=== PATIENT | female | born 1990 | race Caucasian/White ===

== ENCOUNTER 2017-11-18 14:05 | Outpatient (CLI) | payer SELFPAY ==
[2017-11-18 14:35] VITALS: BMI 36.1
--- NOTE | 2017-11-18 15:26 | OB.TRI.NOTE ---
History of Present Illness Date of Service: 11/18/17 Was patient seen by the physician?: No Reason For Visit: RULE OUT LABOR Date of Service: 11/18/17 Final GURJIT: 11/16/17 Gestational age: 40 Weeks and 2 Days Home Medications Medication Instructions Recorded Vits [Prenatabs FA] 1 tablet PO DAILY 05/15/15 Naproxen [Naprosyn] 500 mg PO BID #10 tablet 07/02/17 Allergies amoxicillin trihydrate [From Augmentin] Allergy (Verified 05/15/15 15:38) Unknown PT STATES SHE WAS TOLD THIS FROM MOTHER A CHILD BUT UNSURE OF REACTION SO PREFERS NOT TO TAKE potassium clavulanate [From Augmentin] Allergy (Verified 05/15/15 15:38) Unknown Physical Exam General: Alert, Oriented x3, Cooperative, No apparent distress Cardiovascular: Regular rate, Regular Rhythm Lungs: Clear to auscultation, Normal air movement Abdomen: Soft, Non Tender, Non-Distended, Gravid, Appropriate for Gestational Age Extremities:: No edema Estimated gestational size: Appropriate for gestational size Presentation: Cephalic Cervix Dilation (cm): 2 Station: -2 Effacement (%): 50 NST - FHR Rate Baby A Baseline: 130s Variability:: Moderate Accelerations:: 15 x 15 Decelerations:: None NST Reactive:: Yes FHR Category:: Category I Uterine Activity:: rare Impression/Plan 40w2d ega not in active labor. Instructed to followup in office. Return with signs of SROM or increasing labor symptoms.
== END 2017-11-18 15:20 | disposition home or self-care (01) ==
LOC: WPOUT 14:15 → WP 14:16
PROVIDERS: Family Provider Family Medicine; PCP Family Medicine; Visit Provider Obstetrics & Gynecology
DX: O47.1 False labor at or after 37 completed weeks of gestation (principal); Z3A.40 40 weeks gestation of pregnancy
CPT/HCPCS: 59025; 59050; 99218; G0378

== ENCOUNTER 2017-11-20 21:01 | Inpatient (IN) | payer SELFPAY ==
[2017-11-20 19:32] VITALS: BMI 36.5
[2017-11-20 21:43] LABS: Hemoglobin 11.7 g/dl (12.0-15.0); Mean Corp Hgb Conc 32.5 g/gl (32-36); Mean Corpuscular Hgb 30.5 pg (27.0-32.0); Mean Platelet Vol. 10.4 fl (6.2-12.0); Platelet Count 235 K/mm3 (150-450); RBC Distribution Width CV 13.9 % (11.6-14.6); RBC Distribution Width SD 47.3 fl (35.1-43.9); Red Blood Count 3.83 M/mm3 (4.2-5.4); White Blood Count 12.3 K/mm3 (4.4-11.0)
[2017-11-20 21:54] LABS: Scan Indicated on CBC? Y/N NO
[2017-11-20] MEDS: Lactated Ringers 1,000 ML 50 ML IV ×2 (22:00→22:15)
--- NOTE | 2017-11-20 23:35 | PCM.PN.BLA ---
Progress Note LABOR PROGRESS NOTE Doing well, comfortable with epidural. AVSS GEN - NAD FHR 130, moderate variability, + accelerations, no decelerations TOCO - no contractions appreciated SVE 4.5/70/-3, moderate and midposition A/P: 27 yo @ 40 4/7wga in latent labor, Cat I FHR -Start pitocin for augmentation -Vancomyocin administered for GBS - and maternal statuses reassuring
[2017-11-20] MEDS: Oxytocin 30 units/NS 500 ml 30 UNITS/500 ML IV.SOLN IV (23:49)
[2017-11-21] MEDS: Oxytocin 30 units/NS 500 ml 30 UNITS/500 ML IV.SOLN 334 UNITS IV (02:44)
--- NOTE | 2017-11-21 03:02 | OP.PCM_ITS ---
Vaginal Delivery Maternal Presentation: Active Labor 40 5/7 wk UCs Amniotic Membrane Rupture Type: Spontaneous Amniotic Fluid Description: Moderate meconium Final GURJIT: 11/16/17 Gestational age: 40 Weeks and 5 Days [place] doctor who attended delivery (if requested by OB): Kaiser Gauthier Date of Procedure: 11/21/17 Pre-Operative Diagnosis: 40 5/7 wk, labor Post-Operative Diagnosis: same Surgery/ Procedure Performed: Spontaneous Vaginal Delivery Type of Anesthesia: Epidural Description of Procedure: of a ibanez viable female over intact perineum to laceration. Head delivered OA. Nuchal cord x one reduced. Shoulders delivered easily. Baby with initial cry then quiet so cord clamped x two and cut. Vigorous cry noted with transfer of baby to isolette (without stimulation other than movement) OP and nares then suctioned by Dr. Gauthier . Baby tended at isolette initially. Ap 8/9 PP exam: 2nd deg posterior vaginal , perineal laceration noted. Hemostatic, but repaired after delivery of placenta. 3-0 vicryl for repair. No other lacerations Placenta delivered by spont expulsion, expression. 3V cord, normal appearing, meconium stained. EBL 250 cc Pt and infant tolerated delivery well. to recovery , stable condition. Presentation: Vertex Placental Delivery Description: Spontaneous, Expressed Placenta Disposition: [facility] Cord Vessel Description: 3 Vessels Nuchal Cord Compression: Without compression Cord Entanglement: Around neck x 1, loose Drain: Beltre to straight drain Estimated Blood Loss: 250 A gender: Female (1 minute): 8 (5 minute): 9 Episiotomy Description: None Laceration: Midline, Perineal Extension/lac, Vaginal Extension/lac, 2nd degree Medications given after delivery: IV Pitocin Complications: None
[2017-11-21] MEDS: Oxytocin 30 units/NS 500 ml 30 UNITS/500 ML IV.SOLN 167 UNITS IV (03:15)
[2017-11-21 08:00] VITALS: BP 121/67; PULSE 74; RESP 18; TEMP 36.3; O2SAT 98
--- NOTE | 2017-11-21 08:10 | DCINST_ITS ---
Discharge Diet: No Restrictions Discharge Activity: May Shower, May Take a Tub Bath May resume sexual activity in: 4-6 weeks Additional Activity Instructions:: Nothing in the vagina for 4-6 weeks. You may return to work/school in 6 weeks. Additional Instructions: If you experience any of the following, contact your healthcare provider. * Bleeding that soaks a pad every hour for 2 hours * Fever 100.4 or higher * Unrelieved abdominal pain * Problems urinating (including inability to urinate or burning while urinating) . * Visual changes * Severe headache * Flu-like symptoms * Pain or redness in one of both of your breasts * Pain, warmth, tenderness or swelling in your legs, especially the calf area * Frequent nausea and vomiting * Symptoms of depression or anxiety If you experience any of the following, call 911 or go to the nearest Emergency Room. * Chest pain * Problems breathing * Seizure activity * Partial or complete paralysis of a body part, slurred speech, weakness or drooping of the face, or a sudden inability to walk or hold your balance Allergies/Adverse Reactions: Allergies amoxicillin trihydrate [From Augmentin] Allergy (Verified 05/15/15 15:38) Unknown PT STATES SHE WAS TOLD THIS FROM MOTHER A CHILD BUT UNSURE OF REACTION SO PREFERS NOT TO TAKE potassium clavulanate [From Augmentin] Allergy (Verified 05/15/15 15:38) Unknown Medications to take at Discharge Vits [Prenatabs FA] 1 tablet PO DAILY 05/15/15 Orders to be completed after discharge: Electric breast pump Time Frame: 1 Year, Location: None Selected Please Follow Up With: Chiquis Bingham MD - [phone] When: Call to make an appointment with your doctor in 6 weeks. Primary Care Physician: Seven Dickerson [Primary Care Provider] - Proposed Discharge Date: 11/23/17
[2017-11-21] MEDS: Prenatal Vits Tablet 1 TABLET PO (10:35)
[2017-11-21] MEDS: Ibuprofen 600 MG Tablet PO ×2 (12:42→20:18)
[2017-11-21 14:00] VITALS: BP 129/76; PULSE 78; RESP 16; TEMP 36.6; O2SAT 96
[2017-11-21 16:46] VITALS: BP 133/76; PULSE 82; RESP 18; TEMP 36.7; O2SAT 97
[2017-11-21 20:10] VITALS: BP 124/76; PULSE 89; RESP 17; TEMP 36.3; O2SAT 96
[2017-11-21] MEDS: Acetaminophen 500 MG Tablet 1000 MG PO (20:38)
[2017-11-21 23:30] VITALS: BP 130/72; PULSE 84; RESP 17; TEMP 36.6; O2SAT 96
[2017-11-22] MEDS: Ibuprofen 600 MG Tablet PO ×2 (01:53→12:40)
[2017-11-22 03:40] VITALS: BP 111/55; PULSE 74; RESP 16; TEMP 36.7; O2SAT 97
--- NOTE | 2017-11-22 06:57 | PCM.PN.OB ---
Subjective: PPD#1 States feeling really well, rested and would like to go home today. Spouse very helpful with infant care and Margaret was able to sleep. Flu restrictions on visitation in place and missing their other daughter. Minimal pain. Baby nursing well. - Physical Exam General: Alert, Oriented x3, Cooperative, No apparent distress HEENT: Atraumatic Neck: Supple Abdomen: Soft - Fundus firm NT at 2-3 cm inferior to umbilicus Psych/Mental Status: Normal Affect Vital Signs Temp Pulse Resp BP Pulse Ox 98.1 F 74 16 111/55 L 97 11/22/17 03:40 11/22/17 03:40 11/22/17 03:40 11/22/17 03:40 11/22/17 03:40 Oxygen Delivery Method Room Air Weight: 109 kg Body Mass Index (BMI) 36.5 Intake and Output for Last 24 Hours 11/20/17 11/21/17 11/22/17 23:59 23:59 23:59 Intake Total 3630 / 3630 Output Total 3100 / 3100 Balance 530 / 530 Assessment/Plan PPD#1 Stable pp. Dischg home RTO in 6 wk for pp check.
[2017-11-22 08:00] VITALS: BP 128/70; PULSE 79; RESP 15; TEMP 36.7; O2SAT 100
[2017-11-22] MEDS: Acetaminophen 500 MG Tablet 1000 MG PO (08:29)
[2017-11-22] MEDS: Prenatal Vits Tablet 1 TABLET PO (12:40)
[2017-11-22 14:00] VITALS: BP 130/76; PULSE 76; RESP 15; TEMP 36.6; O2SAT 100
== END 2017-11-22 15:10 | disposition home or self-care (01) | DRG 775 ==
LOC: WPOUT 21:05
PROVIDERS: Obstetrics & Gynecology; Admitting Provider Obstetrics & Gynecology; Family Provider Family Medicine; PCP Family Medicine; Visit Provider Obstetrics & Gynecology
DX: O42.02 Full-term premature rupture of membranes, onset of labor within 24 hours of rupture (principal); O69.81X0 Labor and delivery complicated by cord around neck, without compression, not applicable or unspecified; O77.0 Labor and delivery complicated by meconium in amniotic fluid; O70.1 Second degree perineal laceration during delivery; O99.824 Streptococcus B carrier state complicating childbirth; Z37.0 Single live birth; Z3A.40 40 weeks gestation of pregnancy; Z87.891 Personal history of nicotine dependence
CPT/HCPCS: 59025; 59050; 85027; 86850; 86900; 99218; J7120; G0378

== ENCOUNTER 2017-11-25 10:30 | Outpatient (CLI) | payer SELFPAY | END 2017-11-25 11:35 | disposition home or self-care (01) | LOC: WPOUT 10:43 → WP 10:45 | PROVIDERS: Family Provider Family Medicine; PCP Family Medicine; Visit Provider Obstetrics & Gynecology | DX: Z39.1 Encounter for care and examination of lactating mother (principal) | CPT/HCPCS: 96152 ==

== ENCOUNTER → 2019-01-09 11:39 | Outpatient (CLI) | payer SELFPAY ==
[2019-01-10 15:39] LABS: HPV Reflexed? NOT INDICATED
== END ==
PROVIDERS: Visit Provider Obstetrics & Gynecology
DX: Z12.4 Encounter for screening for malignant neoplasm of cervix (principal)
CPT/HCPCS: 88175; G0145

== ENCOUNTER → 2022-02-24 | Outpatient (CLI) | payer SELFPAY ==
[2022-02-24 16:48] LABS: Absolute Lymphocyte Count 2.48 X10^3/uL (0.83-4.51); Absolute Neutrophil Count 5.5 X10^3/uL (2.0-7.7); Basophil# 0.03 X10^3/uL; Basophil% 0.4 % (0-1); Eosinophil# 0.06 X10^3/uL; Eosinophils% 0.7 % (0-5); Hematocrit 37.9 % (37-47); Hemoglobin 12.6 g/dL (12.0-15.0); Lymphocyte # 2.48 X10^3/ul (0.83-4.51); Lymphocyte % 29.2 % (19-41); Mean Corp Hgb Conc 33.2 g/dL (32-36); Mean Corpuscular Hgb 32.1 pg (27.0-32.0); Mean Corpuscular Volume 96.4 fL (81-99); Mean Platelet Vol. 10.5 fl (6.2-12.0); Monocyte# 0.41 X10^3/uL; Monocyte% 4.8 % (0-10); NRBC Flagged by Analyzer 0 % (0-5); Neutrophil # 5.48 X10^3/uL (2.7-7.7); Neutrophil % 64.5 % (47-70); Platelet Count 285 K/mm3 (150-450); RBC Distribution Width CV 12.5 % (11.6-14.6); RBC Distribution Width SD 44.6 fl (35.1-43.9); Red Blood Count 3.93 M/mm3 (4.2-5.4); White Blood Count 8.5 K/mm3 (4.4-11.0)
[2022-02-24 18:15] LABS: HIV - WCH Non-Reactive (Nonreactive); Hepatitis B Surface Antigen Non-Reactive (Nonreactive); Hepatitis C Antibody Non-Reactive (Nonreactive); Rubella IgG Reactive (Nonreactive); Syphilis Antibodies Non-reactive
[2022-03-02 08:28] LABS: HPV APTIMA, High Risk Negative (Negative)
[2022-03-02 22:13] LABS: Chlamydia By Nucleic Acid AMP Negative; Gonococcus By Nucleic Acid AMP Negative
== END | disposition home or self-care (01) ==
PROVIDERS: Visit Provider Obstetrics & Gynecology
DX: Z34.81 Encounter for supervision of other normal pregnancy, first trimester (principal); Z12.4 Encounter for screening for malignant neoplasm of cervix; Z11.3 Encounter for screening for infections with a predominantly sexual mode of transmission
CPT/HCPCS: 36415; 85025; 86703; 86762; 86780; 86803; 87086; 87088; 87340; 87491; 87591; 87624; 88175; G0145

== ENCOUNTER → 2022-06-24 | Outpatient (CLI) | payer SELFPAY ==
[2022-06-24 11:42] LABS: Absolute Lymphocyte Count 1.96 X10^3/uL (0.83-4.51); Absolute Neutrophil Count 6.3 X10^3/uL (2.0-7.7); Basophil# 0.05 X10^3/uL; Basophil% 0.6 % (0-1); Eosinophils% 1.1 % (0-5); Hematocrit 37.2 % (37-47); Hemoglobin 12.1 g/dL (12.0-15.0); Lymphocyte # 1.96 X10^3/ul (0.83-4.51); Lymphocyte % 21.8 % (19-41); Mean Corp Hgb Conc 32.5 g/dL (32-36); Mean Corpuscular Volume 98.4 fL (81-99); Mean Platelet Vol. 10.2 fl (6.2-12.0); Monocyte# 0.45 X10^3/uL; NRBC Flagged by Analyzer 0 % (0-5); Neutrophil # 6.27 X10^3/uL (2.7-7.7); Neutrophil % 69.8 % (47-70); Platelet Count 251 K/mm3 (150-450); RBC Distribution Width CV 13.4 % (11.6-14.6); RBC Distribution Width SD 48.1 fl (35.1-43.9); Red Blood Count 3.78 M/mm3 (4.2-5.4)
[2022-06-24 11:47] LABS: Glucose Challenge Gest 1H 50g 98 mg/dL (70-140)
== END | disposition home or self-care (01) ==
PROVIDERS: Visit Provider Obstetrics & Gynecology
DX: Z34.82 Encounter for supervision of other normal pregnancy, second trimester (principal)
CPT/HCPCS: 36415; 82950; 85025

== ENCOUNTER → 2022-09-22 | Outpatient (CLI) | payer SELFPAY | END | disposition home or self-care (01) | PROVIDERS: Visit Provider Obstetrics & Gynecology | DX: Z34.83 Encounter for supervision of other normal pregnancy, third trimester (principal) | CPT/HCPCS: 87077; 87081; 87186 ==

== ENCOUNTER 2022-10-01 22:35 | Outpatient (CLI) | payer SELFPAY ==
[2022-10-01 22:41] VITALS: BMI 38.8
[2022-10-01 22:49] VITALS: BP 135/83; PULSE 94; PULSE 98; TEMP 36.6; O2SAT 92; O2SAT 97
[2022-10-01 23:27] VITALS: BP 125/79; PULSE 84
--- NOTE | 2022-10-02 09:06 | OB.TRI.NOTE ---
HPI - General General Date of Service: 10/01/22 HPI Narrative LEONARDO GONSALEZ, is a 32 F who presents with contractions PFSH PFSH Home Medications vits,calcium no.78-iron fumarate-folic acid 29 mg-1 mg tablet (Prenatabs FA) 1 tab PO DAILY 05/15/15 [History Last Taken 10/01/22] Allergy/AdvReac Type Severity Reaction Status Date / Time amoxicillin trihydrate Allergy Unknown Verified 10/01/22 22:59 [From Augmentin] potassium clavulanate Allergy Unknown Verified 10/01/22 22:59 [From Augmentin] teatree oil AdvReac Rash Uncoded 10/01/22 22:59 Social History Smoking Status: Former smoker History Elective abortions Hx Para 1 Spontaneous abortions Hx # Term Pregnancies Ectopic pregnancies Hx # Pregnancies Multiple births # of living children NST FHR Rate Baby A Baseline: 120 Variability:: Moderate Accelerations:: 15 x 15 Decelerations:: None NST Reactive:: Yes Uterine Activity:: infrequent contractions Assessment & Plan (1) : PLAN: Patient arrives with contractions. Overall unchanged cervix from office examination per nursing. Patient offered repeat cervical exam by nursing and patient declined. Okay to discharge home given labor precautions
== END 2022-10-02 00:46 | disposition home or self-care (01) ==
LOC: WPOUT 22:40 → WP 22:41
PROVIDERS: Visit Provider Obstetrics & Gynecology
DX: O47.9 False labor, unspecified (principal); Z3A.00 Weeks of gestation of pregnancy not specified; Z87.891 Personal history of nicotine dependence
CPT/HCPCS: 59025; 59050; 99221; G0378

== ENCOUNTER 2022-10-05 04:10 | Inpatient (IN) | payer SELFPAY ==
[2022-10-05] VITALS (62 sets, daily range): BP systolic 97–162; BP diastolic 51–95; PULSE 74–143; TEMP 36.3–37.2; O2SAT 83–100; BMI 38.7
[2022-10-05 04:09] LABS: ROM Internal Control Test YES-OK TO RESULT pt. (Internal QC)
[2022-10-05 04:10] LABS: ROM Patient Test POSITIVE (Negative)
[2022-10-05] MEDS: LACTATED RINGERS 500 ML 999 ML IV ×2 (05:00→16:48)
[2022-10-05] MEDS: Cefazolin 2 GM in 0.9% Normal Saline 100 ML IV (05:14)
[2022-10-05 05:15] LABS: Absolute Lymphocyte Count 2.39 X10^3/uL (0.83-4.51); Absolute Neutrophil Count 7.9 X10^3/uL (2.0-7.7); Basophil# 0.07 X10^3/uL; Basophil% 0.6 % (0-1); Eosinophil# 0.11 X10^3/uL; Hematocrit 33.9 % (37-47); Hemoglobin 10.9 g/dL (12.0-15.0); Lymphocyte # 2.39 X10^3/ul (0.83-4.51); Lymphocyte % 21.2 % (19-41); Mean Corp Hgb Conc 32.2 g/dL (32-36); Mean Corpuscular Hgb 30.9 pg (27.0-32.0); Mean Platelet Vol. 10.2 fl (6.2-12.0); Monocyte# 0.68 X10^3/uL; NRBC Flagged by Analyzer 0 % (0-5); Neutrophil # 7.85 X10^3/uL (2.7-7.7); Neutrophil % 69.5 % (47-70); Platelet Count 230 K/mm3 (150-450); RBC Distribution Width CV 13.9 % (11.6-14.6); RBC Distribution Width SD 48.4 fl (35.1-43.9); Red Blood Count 3.53 M/mm3 (4.2-5.4); White Blood Count 11.3 K/mm3 (4.4-11.0)
[2022-10-05] MEDS: Lactated Ringers 1,000 ML 200 ML IV ×3 (05:35→15:52)
[2022-10-05] MEDS: Mag Hydrox/Al Hydrox/Simeth 30 ML UDC PO ×2 (05:35→14:11)
[2022-10-05] MEDS: fentaNYL-bupivacaine (epidural) 100 ML BAG EPIDURAL ×3 (06:43→15:04)
--- NOTE | 2022-10-05 07:36 | PCM.HP.BLA ---
History and Physical Date of Admission: 10/05/22 Chief complaint: Leakage of fluid History present illness: 32-year-old G3, P2 at 38 weeks and 6 days with GURJIT 10/13/2022 arrives with leakage of clear fluid. Denies headache, visual changes, chest pain, shortness of breath, nausea vomit, right upper quadrant pain. Patient states good movement. Obstetric history: G1: 39-week 7 pounds 10 ounces G2: 41-week 7 pounds 10 ounces G3: Current Past medical history: None Medications: vitamin Past surgical history: Cholecystectomy, tonsillectomy Allergies: Augmentin Social history: Former smoker, denies alcohol or drug use Family history: Denies history DVT or PE Review of systems: Besides above pertinent positive for review of systems was performed and found to be negative Physical exam: Vitals: Pulse 86 SPO2 100% on room air General: Normal-appearing no acute distress HEENT: Normocephalic/atraumatic no cervical adenopathy Cardiac/respiratory: No use accessory muscles, nonlabored breathing Abdomen: Soft, nontender, gravid Extremities: No peripheral edema normal peripheral pulses Psych: Normal affect normal demeanor nonpressured speech Labs: White blood cell count 11.3 hemoglobin 10.9 hematocrit 33.9% platelets 230. ROM positive. Blood type AB+ antibody negative Assessment plan: 32-year-old G3, P2 at 30 weeks and 6 days with SROM Admit labor and delivery CEFM GBS positive: Allergy to Augmentin childhood. We will treat with Ancef
[2022-10-05] MEDS: Oxytocin 15 Units/NS 250ml 15 UNITS/250 ML IV.SOLN 2 UNITS IV (11:46)
[2022-10-05] MEDS: Cefazolin 1 GM/50 ML BAG IV (13:02)
[2022-10-05] MEDS: Methylergonovine 0.2 MG/ML Ampul IM (17:32)
--- NOTE | 2022-10-05 17:51 | EX.PCM.OBRPT ---
Vaginal Delivery Findings Description of Procedure: Normal spontaneous vaginal delivery of a viable female infant in vertex HELDER. Head and shoulders delivered with ease. Cord clamped and cut. Baby handed off to patient. Placenta delivery via cord traction and fundal massage. IV oxytocin initiated in order to facilitate uterine contractions. IM Methergine given prophylactically for quick and second stage of labor. Second-degree midline perineal laceration noted and repaired in typical fashion. EBL 350 cc Apgars 9/10
[2022-10-05] MEDS: Oxytocin 15 Units/NS 250ml 15 UNITS/250 ML IV.SOLN 83 UNITS IV (18:04)
[2022-10-05] MEDS: Benzocaine/Lanolin/Aloe Vera 1 SPRAY EACH TOPICAL (20:10)
[2022-10-05] MEDS: Ibuprofen 600 MG Tablet PO (20:10)
[2022-10-05] MEDS: 0.9% Saline Lock 10 ML Syringe IV (21:17)
[2022-10-06 00:01] VITALS: BP 115/65; PULSE 75; RESP 14; TEMP 36.5
[2022-10-06 05:16] VITALS: BP 109/78; PULSE 71; RESP 16; TEMP 36.5
[2022-10-06] MEDS: Ibuprofen 600 MG Tablet PO ×2 (05:25→11:18)
--- NOTE | 2022-10-06 07:28 | PCM.PN.OB ---
Subjective Subjective day 1. Lochia minimal. No issues or concerns overnight. Objective Data Objective Data Vital Signs: Vital Signs Temp Pulse Resp BP Pulse Ox O2 Del Method 97.7 F L 71 16 109/78 97 Room Air 10/06/22 05:16 10/06/22 05:16 10/06/22 05:16 10/06/22 05:16 10/05/22 20:01 10/06/22 05:16 Oxygen Delivery Method Room Air Weight: 112.219 kg Body Mass Index (BMI) 38.7 Intake & Output: Intake and Output for Last 24 Hours 10/04/22 10/05/22 10/06/22 23:59 23:59 23:59 Intake Total 4007.06 / 4007.06 800 / 800 Output Total 3550 / 3550 800 / 800 Balance 457.06 / 457.06 0 / 0 Lab / Micro Data Attestation: I reviewed the patient's lab results. Result Diagrams: 10/05/22 05:00 Physical Exam Const alert, oriented x3 and no apparent distress HEENT normocephalic Head and Scalp: atraumatic Neck full ROM Resp normal respiratory effort Cardio regular rate GI normal to inspection, nondistended, normoactive bowel sounds GI Narrative: Uterus 2 cm below umbilicus Back/Spine normal ROM Extremity normal to inspection Extremity Narrative: Minimal pedal edema Neuro no focal motor deficits and no sensory deficits noted Psych mental status grossly normal and affect normal Assessment & Plan (1) Vaginal delivery: PLAN: day 1 status post . Stable. Desires home-going today.
--- NOTE | 2022-10-06 07:29 | DCINST_ITS ---
Discharge Instructions Diet Discharge Diet: No restrictions Activity Discharge Activity: Return to Normal Activity and May Shower May resume sexual activity in: 4-6 weeks Weight Bearing Status: Weight bearing as tolerated Lifting Restrictions: No greater than 25 pounds Dressing / Incision Call your doctor if you observe: Fever of 101 or Higher, Change in Color, Inability to urinate, Using more than 1 pad per hour, Shortness of breath, Dizziness, Swelling in the ankles, Chest pain and Calf discomfort Follow Up Care Please Follow Up With: Boy Verduzco MD When: 6-week visit Test Results: Test results from this visit will be discussed in further detail at your follow- up appointment, if applicable. Discharge Plan Admission Admit Date/Time: 10/05/22 04:10 Primary Reason for Your Visit: Vaginal delivery Attending Provider: Boy Verduzco Primary Care Provider: Care PhysicianMelissa Primary Discharge Orders/Prescriptions Prescriptions: No Action Prenatabs FA 1 TABLET tablet 1 tab PO DAILY famotidine [Pepcid] 20 mg Tablet 20 mg PO DAILY Referrals / Follow Up: Care Physician,No Primary [Primary Care Provider] - Disposition Disposition (needs filled in before D/C Order can be placed): Home, Self Care
[2022-10-06 08:04] VITALS: BP 124/77; PULSE 85; RESP 15; TEMP 36.6
[2022-10-06] MEDS: Acetaminophen 500 MG Tablet 1000 MG PO (11:17)
[2022-10-06 12:27] VITALS: BP 128/78; PULSE 89; RESP 16; TEMP 36.7
[2022-10-06 16:34] VITALS: BP 120/69; PULSE 79; RESP 15; TEMP 36.7
== END 2022-10-06 18:25 | disposition home or self-care (01) | DRG 807 ==
LOC: WPOUT 04:11 → WP 04:11
PROVIDERS: Student in an Organized Health Care Education/Training Program; Admitting Provider Obstetrics & Gynecology; Visit Provider Obstetrics & Gynecology
DX: O70.1 Second degree perineal laceration during delivery (principal); Z37.0 Single live birth; O99.824 Streptococcus B carrier state complicating childbirth; Z87.891 Personal history of nicotine dependence; Z3A.38 38 weeks gestation of pregnancy
CPT/HCPCS: 59025; 59050; 84112; 85025; 86850; 86900; 86901; 99221; J7120; A4216; G0378